=== PATIENT | female | born 1970 | race Caucasian/White ===

== ENCOUNTER → 2018-01-29 | Outpatient (CLI) | payer OTHER ==
[~2018-01-29] MED LIST: ALBU90OI INH; AMOCLA500 PO; ASPI81EC PO; BENZ100A PO; Baclofen10 MG PO; CYCL10 PO; DOXY100 PO; FURO20 PO; HYDACE5 PO; HYDACE5325 PO; IBUP800 PO; MELO7.5 PO; MULVITMINE; NAPR500 PO; Norco 5-325 Ta1 EACH PO; OLME20 PO; OXYACE5T PO; PENVK500 PO; POTCHL10ER PO; PROG100; Prednisone20 MG PO; RANI150 PO; STOMUL PO; TRAM50 PO; Triamcinolone A15 G3 TP; Ultram50 MG PO; Veetids 500500 MG PO; Zithromax250 MG PO
== END ==
LOC: LAB SHORT 18:57 → LAB 18:57
DX: L08.9 Local infection of the skin and subcutaneous tissue, unspecified (principal)
CPT/HCPCS: 87070; 87077; 87186; 87205

== ENCOUNTER 2019-09-21 14:06 | Emergency (ER) | payer OTHER ==
[~2019-09-21] VITALS: Ht 162.6 cm; Wt 111.1 kg
[2019-09-21] MEDS ORDERED: TRAM50 PO (14:39)
[2019-09-21] MEDS ORDERED: CYCL10 PO (14:39)
== END 2019-09-21 14:51 | disposition home or self-care (01) ==
LOC: ER 14:06
DX: M62.830 Muscle spasm of back (principal); I10 Essential (primary) hypertension; Z88.8 Allergy status to other drugs, medicaments and biological substances; Z79.899 Other long term (current) drug therapy; Z87.891 Personal history of nicotine dependence
CPT/HCPCS: 96372; 99282-25; J1885

== ENCOUNTER 2020-03-22 18:31 | Emergency (ER) | payer OTHER ==
[~2020-03-22] VITALS: Ht 162.6 cm; Wt 111.1 kg
== END 2020-03-22 20:23 | disposition home or self-care (01) ==
LOC: ER 18:31
DX: T22.111A Burn of first degree of right forearm, initial encounter (principal); I10 Essential (primary) hypertension; Z87.891 Personal history of nicotine dependence; Z79.899 Other long term (current) drug therapy; X08.8XXA Exposure to other specified smoke, fire and flames, initial encounter
CPT/HCPCS: 96374; 99283-25; A9270; J2270

== ENCOUNTER 2020-10-02 11:24 | Emergency (ER) | payer OTHER ==
[~2020-10-02] VITALS: Ht 162.6 cm; Wt 108.9 kg
[2020-10-02 12:17] LABS: BASOPHILS ABSOLUTE AUTO 0.07 K/mm3 (0.00-0.23); BASOPHILS PERCENT AUTO 1 % (0-2); EOSINOPHILS ABSOLUTE AUTO 0.26 K/mm3 (0.00-0.68); EOSINOPHILS PERCENT AUTO 2 % (0-6); Hematocrit 39.7 % (33.0-51.0); Hemoglobin 12.8 g/dL (11.5-16.0); IMMATURE GRAN ABSOLUTE AUTO 0.08 K/mm3 (0.00-0.10); IMMATURE GRAN PERCENT AUTO 1 % (0-1); LYMPHOCYTES PERCENT AUTO 26 % (21-46); MONOCYTES ABSOLUTE AUTO 0.64 K/mm3 (0.16-1.47); MONOCYTES PERCENT AUTO 6 % (4-13); Mean Corpuscular HGB Conc 32.2 g/dL (31.5-36.5); Mean Corpuscular Volume 90 fL (80-100); NEUTROPHILS ABSOLUTE AUTO 7.39 K/mm3 (1.96-9.15); NEUTROPHILS PERCENT AUTO 65 % (41-73); Platelet Count 365 K/mm3 (150-400); RDW Coefficient Variation 13.4 % (11.7-14.2); Red Blood Cell Count 4.42 M/mm3 (3.80-5.20); White Blood Cell Count 11.34 K/mm3 (4.00-11.30)
[2020-10-02 12:36] LABS: Alanine Aminotransfer (ALT/SGP 19 U/L (12-78); Albumin, Blood 2.8 g/dL (3.4-5.0); Albumin/Globulin Ratio 0.5 (0.8-1.8); Alk Phos 68 U/L (50-136); Anion Gap 6 mmol/L (6-16); Aspartate Aminotrans (AST/SGOT 16 U/L (12-37); Bilirubin, Total 0.2 mg/dL (0.1-1.0); Blood Urea Nitrogen 14 mg/dL (8-24); Bun/Creatinine Ratio 12.8 (12.0-20.0); CO2, Blood 22 mmol/L (21-32); Calcium, Blood 8.6 mg/dL (8.5-10.1); Chloride, Blood 110 mmol/L (98-108); Creatinine, Blood 1.09 mg/dL (0.40-1.00); Globulin, Blood 5.1 g/dL (2.2-4.0); Glomerular Filtration Rate 56 (60-); Glucose, Blood 121 mg/dL (70-99); Potassium, Blood 3.7 mmol/L (3.5-5.5); Sodium, Blood 138 mmol/L (136-145); Total Protein, Blood 7.9 g/dL (6.4-8.2); Troponin I <0.015 ng/mL (0.000-0.040)
== END 2020-10-02 13:15 | disposition home or self-care (01) ==
LOC: ER 11:24
PROVIDERS: Emergency Medicine
DX: R55 Syncope and collapse (principal); R20.0 Anesthesia of skin; I12.9 Hypertensive chronic kidney disease with stage 1 through stage 4 chronic kidney disease, or unspecified chronic kidney disease; N18.9 Chronic kidney disease, unspecified; Z88.8 Allergy status to other drugs, medicaments and biological substances; Z79.899 Other long term (current) drug therapy
CPT/HCPCS: 36415; 71046; 80053; 83690; 84484; 85025; 93005; 93010